=== PATIENT | male | born 1995 | race Caucasian/White ===

== ENCOUNTER 2017-06-25 20:44 | Emergency (ER) | payer MEDICAID ==
[~2017-06-25] VITALS: Ht 172.7 cm; Wt 59.0 kg
[2017-06-25 20:48] VITALS: BP 143/90
== END 2017-06-25 21:08 | disposition home or self-care (01) ==
LOC: ER 20:45
DX: S61.411A Laceration without foreign body of right hand, initial encounter (principal); W22.8XXA Striking against or struck by other objects, initial encounter; Y93.89 Activity, other specified; Y92.89 Other specified places as the place of occurrence of the external cause; Y99.8 Other external cause status
CPT/HCPCS: 29130; 99283; A6255